=== PATIENT | female | born 1990 | race Caucasian/White ===

== ENCOUNTER 2021-03-15 17:14 | Emergency (ER) | payer BC ==
[2021-03-15] MEDS ORDERED: Sodium Chloride 0.9% 10 ML Syringe FLUSH PRN (17:23)
--- NOTE | 2021-03-15 17:38 | EDM.PDOC ---
ED HPI GENERAL MEDICAL PROBLEM - General Chief Complaint: Chest Pain Stated Complaint: CHEST PAIN Time Seen by Provider: 03/15/21 17:22 Source of Information: Reports: Patient, RN Notes Reviewed History Limitations: Reports: No Limitations - History of Present Illness INITIAL COMMENTS - FREE TEXT/NARRATIVE: Patient is a 31-year-old female who presents to the ER for the evaluation of her left sided chest pain. Patient notes she got her second dose of her Pfizer Covid vaccine on March 07. She states that on March 09, she developed some chest discomfort, and it has been lingering since then. She notes that movement seems to make this worse. When she lays still or is resting, it seems to make it better. She states that she woke up this morning, the pain was non existent however when she started moving around again it worsened. She has been using aspirin for general heart health since she has had this chest pain, and has been trying Tylenol and ibuprofen with little relief. States that she became anxious today when the pain seemed to radiate up into her jaw. She has not experienced this sort of chest pain or chest discomfort before. She denies any other past medical history. She states she does take control but is not a smoker. Patient denies any other sick-like symptoms, fever/chills, cough/shortness of breath, nausea/vomiting/diarrhea. - Related Data Allergies Allergy/AdvReac Type Severity Reaction Status Date / Time Sulfa (Sulfonamide Allergy Hives Verified 03/15/21 17:27 Antibiotics) Home Meds: Home Meds Control. 1 tab PO DAILY 03/15/21 [History] LORazepam [Ativan] 1 mg PO TID PRN #12 tab 03/15/21 [Rx] Omeprazole 20 mg PO DAILY 03/15/21 [History] Past Medical History Gastrointestinal History: Reports: GERD Endocrine/Metabolic History: Reports: Obesity/BMI 30+ - Past Surgical History Musculoskeletal Surgical History: Reports: Other (See Below) Other Musculoskeletal Surgeries/Procedures:: knee surgery Social & Family History - Tobacco Use Tobacco Use Status *Q: Never Tobacco User Second Hand Smoke Exposure: No - Recreational Drug Use Recreational Drug Use: No ED ROS GENERAL - Review of Systems Review Of Systems: Comprehensive ROS is negative, except as noted in HPI. ED EXAM, GENERAL - Physical Exam Exam: See Below Exam Limited By: No Limitations General Appearance: Alert, WD/WN, No Apparent Distress, Anxious (slight generalized) Respiratory/Chest: No Respiratory Distress, Lungs Clear, Normal Breath Sounds, No Accessory Muscle Use, Other (left chest tender to palpation on left midline chest about the 3rd rib area.) Cardiovascular: Normal Peripheral Pulses, Regular Rate, Rhythm, No Edema Peripheral Pulses: 2+: Radial (L), Radial (R) Extremities: Normal Inspection, Normal Capillary Refill Neurological: Alert, Oriented, Normal Cognition, No Motor/Sensory Deficits Psychiatric: Normal Affect, Normal Mood Skin Exam: Warm, Dry, Intact, Normal Color, No Rash #1 Interpretation EKG Date: 03/15/21 Time: 17:32 Rhythm: NSR (sinus tach) Rate (Beats/Min): 106 [place]: Normal P-Wave: Present QRS: Normal ST-T: Normal QT: Normal Comparison: NA - No Prior EKG EKG Interpretation Comments: No obvious ischemia or acute ST changes noted, reviewed by myself and Dr. Harrison. There are some borderline T wave abnormalities in inferior leads, specifically flipped T waves in leads III, and isoelectric T in aVF. Course - Vital Signs Last Recorded V/S: Last Vital Signs Temp 96.9 F 03/15/21 17:22 Pulse 114 H 03/15/21 17:22 Resp 16 03/15/21 17:22 BP 162/109 H 03/15/21 17:22 Pulse Ox 93 L 03/15/21 17:22 - Orders/Labs/Meds Orders: Active Orders 24 hr Category Date Time Status Peripheral IV Care [RC] . DIRECTED Care 03/15/21 17:24 Ordered Ang Chest [CT] Stat Exams 03/15/21 18:59 Ordered Chest 1V Frontal [CR] Stat Exams 03/15/21 17:24 Ordered Sodium Chloride 0.9% [Saline Flush] Med 03/15/21 17:23 Ordered 10 ml FLUSH ASDIRECTED PRN Peripheral IV Insertion Adult [OM.PC] Stat Oth 03/15/21 17:24 Ordered Medication Orders Sodium Chloride (Sodium Chloride 0.9% 10 Ml Syringe) 10 ml FLUSH ASDIRECTED PRN PRN Reason: Keep Vein Open Last Admin: 03/15/21 19:25 Dose: 10 ml Documented by: [email or web address] Labs: Laboratory Tests 03/15/21 03/15/21 03/15/21 Range/Units 17:40 17:40 17:40 WBC 8.77 (3.98-10.04) K/mm3 RBC 4.73 (3.98-5.22) M/mm3 Hgb 13.7 (11.2-15.7) gm/dl Hct 41.4 (34.1-44.9) % MCV 87.5 (79.4-94.8) fl MCH 29.0 (25.6-32.2) pg MCHC 33.1 (32.2-35.5) g/dl RDW Std Deviation 41.6 (36.4-46.3) fL Plt Count 190 (182-369) K/mm3 MPV 11.4 (9.4-12.3) fl Neut % (Auto) 53.5 (34.0-71.1) % Lymph % (Auto) 37.1 (19.3-51.7) % [place] % (Auto) 6.7 (4.7-12.5) % Eos % (Auto) 1.5 (0.7-5.8) Baso % (Auto) 0.7 (0.1-1.2) % Neut # (Auto) 4.70 (1.56-6.13) K/mm3 Lymph # (Auto) 3.25 (1.18-3.74) K/mm3 [place] # (Auto) 0.59 H (0.24-0.36) K/mm3 Eos # (Auto) 0.13 (0.04-0.36) K/mm3 Baso # (Auto) 0.06 (0.01-0.08) K/mm3 PT 9.6 L (9.7-12.0) SECONDS INR < 0.93 APTT 23.5 (21.7-31.4) SECONDS D-Dimer, Quantitative (0.19-0.50) mg/L Sodium 140 (136-145) mEq/L Potassium 4.0 (3.5-5.1) mEq/L Chloride 103 (98-107) mEq/L Carbon Dioxide 19 L (21-32) mEq/L Anion Gap 22.0 H (5-15) BUN 16 (7-18) mg/dL Creatinine 0.8 (0.55-1.02) mg/dL Est Cr Clr Drug Dosing 95.38 mL/min Estimated GFR (MDRD) > 60 (>60) mL/min BUN/Creatinine Ratio 20.0 H (14-18) Glucose 189 H (70-99) mg/dL Calcium 9.0 (8.5-10.1) mg/dL Magnesium 1.6 L (1.8-2.4) mg/dL Total Bilirubin 0.2 (0.2-1.0) mg/dL AST 33 (15-37) U/L ALT 56 (14-59) U/L Alkaline Phosphatase 60 (46-116) U/L Troponin I < 0.017 (0.00-0.056) ng/mL NT-Pro-B Natriuret Pep (0-125) pg/mL Total Protein 7.4 (6.4-8.2) g/dl Albumin 3.4 (3.4-5.0) g/dl Globulin 4.0 gm/dL Albumin/Globulin Ratio 0.9 L (1-2) 03/15/21 03/15/21 Range/Units 17:40 17:40 WBC (3.98-10.04) K/mm3 RBC (3.98-5.22) M/mm3 Hgb (11.2-15.7) gm/dl Hct (34.1-44.9) % MCV (79.4-94.8) fl MCH (25.6-32.2) pg MCHC (32.2-35.5) g/dl RDW Std Deviation (36.4-46.3) fL Plt Count (182-369) K/mm3 MPV (9.4-12.3) fl Neut % (Auto) (34.0-71.1) % Lymph % (Auto) (19.3-51.7) % [place] % (Auto) (4.7-12.5) % Eos % (Auto) (0.7-5.8) Baso % (Auto) (0.1-1.2) % Neut # (Auto) (1.56-6.13) K/mm3 Lymph # (Auto) (1.18-3.74) K/mm3 [place] # (Auto) (0.24-0.36) K/mm3 Eos # (Auto) (0.04-0.36) K/mm3 Baso # (Auto) (0.01-0.08) K/mm3 PT (9.7-12.0) SECONDS INR APTT (21.7-31.4) SECONDS D-Dimer, Quantitative 0.72 H (0.19-0.50) mg/L Sodium (136-145) mEq/L Potassium (3.5-5.1) mEq/L Chloride (98-107) mEq/L Carbon Dioxide (21-32) mEq/L Anion Gap (5-15) BUN (7-18) mg/dL Creatinine (0.55-1.02) mg/dL Est Cr Clr Drug Dosing mL/min Estimated GFR (MDRD) (>60) mL/min BUN/Creatinine Ratio (14-18) Glucose (70-99) mg/dL Calcium (8.5-10.1) mg/dL Magnesium (1.8-2.4) mg/dL Total Bilirubin (0.2-1.0) mg/dL AST (15-37) U/L ALT (14-59) U/L Alkaline Phosphatase (46-116) U/L Troponin I (0.00-0.056) ng/mL NT-Pro-B Natriuret Pep 33 (0-125) pg/mL Total Protein (6.4-8.2) g/dl Albumin (3.4-5.0) g/dl Globulin gm/dL Albumin/Globulin Ratio (1-2) Meds: Medications Generic Name Dose Route Start Last Admin Trade Name Freq PRN Reason Stop Dose Admin Sodium Chloride 10 ml 03/15/21 17:23 03/15/21 19:25 Sodium Chloride 0.9% 10 Ml Syringe FLUSH 10 ml ASDIRECTED PRN Administration Keep Vein Open Discontinued Medications Generic Name Dose Route Start Last Admin Trade Name Freq PRN Reason Stop Dose Admin Iopamidol 100 ml 03/15/21 19:02 03/15/21 19:25 Iopamidol 755 Mg/Ml 100 Ml Bottle IVPUSH 03/15/21 19:03 100 ml ONETIME ONE Administration - Re-Assessments/Exams Free Text/Narrative Re-Assessment/Exam: 03/15/21 17:39 Patient presents to the ER for her chest discomfort. We will go ahead and get a full chest pain work-up to include labs, chest x-ray, and EKG for management. 03/15/21 18:22 Patient's initial labs have started to result, CBC is fairly unremarkable, along with coagulation studies except for the D-dimer did come back elevated at 0.72 at this time. We will go ahead and await for further labs to result at this time. I will go over risks of CTA with the patient and try to do some informed decision-making about getting further imaging. 03/15/21 20:[address] demonstrated no sign of an acute pulmonary embolus at this time. There was an area in the right lower lobe that looked to be a groundglass nodule about 8 mm in diameter it is very nonspecific but it could represent a small area of pneumonitis, otherwise lungs are clear. Departure - Departure Time of Disposition: 20:19 Disposition: Home, Self-Care 01 Condition: Good Clinical Impression: Chest wall pain Instructions: Chest Wall Pain, [id number] Referrals: Nazia Whitaker, [employer] [Primary Care Provider] - Forms: ED Department Discharge, ED Return to Work/School Form Additional Instructions: You were evaluated in the ER today for your chest wall pain. Laboratory evaluation done at today's visit did demonstrate an elevated D-dimer, and a CT of your chest was performed to rule out pulmonary embolus, there was no sign of a pulmonary embolus on your chest CT performed tonight. All other labs are essentially unremarkable, your magnesium was just a bit low, which is likely nutritional, and I would recommend that you increase your oral intake of magnesium. You were given a prescription for Ativan, for your anxiety, you may take 1/2-1 full tablet 3 times a day as needed for ongoing anxiety management. This medication was electronically sent to the [place] [facility] [employer]. Recommend you take at least 600 mg ibuprofen every 6 hours as needed for chest discomfort as well. Do not exceed over 3200 mg in a 24-hour time span. Do not hesitate to return to the ER at any time however if your symptoms should change or worsen. Sepsis Event Note (ED) - Evaluation Sepsis Screening Result: No Definite Risk - Focused Exam Vital Signs: Vital Signs Temp Pulse Resp BP Pulse Ox 03/15/21 17:22 96.9 F 114 H 16 162/109 H 93 L - My Orders Last 24 Hours: My Active Orders 03/15/21 17:23 Sodium Chloride 0.9% [Saline Flush] 10 ml FLUSH ASDIRECTED PRN 03/15/21 17:24 Peripheral IV Care [RC] . DIRECTED Chest 1V Frontal [CR] Stat Peripheral IV Insertion Adult [OM.PC] Stat 03/15/21 18:59 Ang Chest [CT] Stat - Assessment/Plan Last 24 Hours: My Active Orders 03/15/21 17:23 Sodium Chloride 0.9% [Saline Flush] 10 ml FLUSH ASDIRECTED PRN 03/15/21 17:24 Peripheral IV Care [RC] . DIRECTED Chest 1V Frontal [CR] Stat Peripheral IV Insertion Adult [OM.PC] Stat 03/15/21 18:59 Ang Chest [CT] Stat
[2021-03-15] MEDS ORDERED: Iopamidol 755 Mg/ML 100 ML Bottle IVPUSH ONE (19:02)
--- NOTE | 2021-03-16 06:55 | CR ---
Chest: Frontal view of the chest was obtained. Comparison: No prior chest imaging is available. Heart size and mediastinum are normal. Lungs are clear with no acute parenchymal change. Bony structures show nothing acute. Impression: 1. Nothing acute is seen on portable chest x-ray. Diagnostic code #1
--- NOTE | 2021-03-16 08:44 | CT ---
CT chest Technique: Multiple axial sections were obtained through the chest. Intravenous contrast was utilized. Study has been performed as a pulmonary angiogram protocol. Comparison: Prior chest x-ray performed earlier on the same day (5:51 PM). Findings: Pulmonary arteries are well opacified. No filling defects are seen to indicate pulmonary embolism. Mediastinum shows no adenopathy. Thoracic aorta shows no aneurysm. No pericardial effusion is seen. Fatty infiltration is seen within the liver. Small density is noted within the right lower lung measuring around 8 mm. Lungs otherwise are clear. Bone window settings were reviewed which appear within normal limits for the patient's age. Impression: 1. No findings of pulmonary embolism. 2. Approximate 8 mm nodular area of density within the right lower chest. Please correlate if patient has any symptoms of minimal pneumonia. Follow-up noncontrast chest CT study is recommended in 9 months to confirm that this disappears and does not enlarged. 3. No other acute abnormality is appreciated. Diagnostic code #3 I agree with preliminary report from [facility], finalized on 03/15/21, 9:01 PM CDT, code 1
== END 2021-03-15 20:33 | disposition home or self-care (01) ==
LOC: JD.ED 17:14
DX: R07.89 Other chest pain (principal); K21.9 Gastro-esophageal reflux disease without esophagitis; E66.9 Obesity, unspecified; Z68.42 Body mass index [BMI] 45.0-49.9, adult; Z88.2 Allergy status to sulfonamides; Z79.899 Other long term (current) drug therapy
CPT/HCPCS: 36415; 71045; 71275; 80053; 83735; 83880; 84484; 85025; 85379; 85610; 85730; 93005; 99285; Q9967